=== PATIENT | male | born 1965 | race Caucasian/White ===

== ENCOUNTER 2016-07-16 21:17 | Emergency (ER) | payer SELFPAY ==
[2016-07-16 21:27] VITALS: BP 143/62
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
== END 2016-07-16 23:10 | disposition left against medical advice (07) ==
LOC: ER 21:17
DX: T25.512A Corrosion of first degree of left ankle, initial encounter (principal); X58.XXXA Exposure to other specified factors, initial encounter; Z88.6 Allergy status to analgesic agent; Z86.14 Personal history of Methicillin resistant Staphylococcus aureus infection
CPT/HCPCS: 99281

== ENCOUNTER 2016-10-31 13:15 | Emergency (ER) | payer SELFPAY ==
[2016-10-31] MEDS ORDERED: TAMSULOSIN HCL 0.4 MG CAP.SR.24H PO ONE (13:27)
--- NOTE | 2016-10-31 13:28 | ER Document Report ---
ED Medical Screen (RME) - General Chief Complaint: Inability to Void Stated Complaint: URINARY PROBLEMS TRAVEL OUTSIDE OF THE [place] IN LAST 30 DAYS: No - HPI Notes: 10/31/16 13:27 Urinary retention with dysuria the last 48 hours - Related Data Allergies/Adverse Reactions: codeine [Codeine] Allergy (Verified 10/31/16 13:17) hydrocodone [Hydrocodone] Allergy (Verified 10/31/16 13:17) Past Medical History Renal/ Medical History: Denies: Hx Peritoneal Dialysis Skin Medical History: Reports Hx MRSA Traumatic Medical History: Reports: Hx Fractures Infectious Medical History: Reports: Hx MRSA Past Surgical History: Reports: Hx Orthopedic Surgery - R clavical - Immunizations Immunizations up to date: No Hx Diphtheria, Pertussis, Tetanus Vaccination: Yes Review of Systems - Review of Systems Constitutional: Other - Urinary retention Physical Exam - Cardiovascular Rhythm: Regular Heart sounds: Normal auscultation Course - Re-evaluation Re-evalutation: 10/31/16 13:28 I have greeted and performed a rapid initial assessment of this patient. A comprehensive ED assessment and evaluation of the patient, analysis of test results and completion of the medical decision making process will be conducted by additional ED providers.
--- NOTE | 2016-10-31 14:02 | ER Document Report ---
ED General - General Chief Complaint: Inability to Void Stated Complaint: URINARY PROBLEMS Mode of Arrival: Ambulatory Information source: Patient Notes: 51-year-old male presents with complaints of difficulty urinating. Patient notes he has had burning on urination with foul dark smelling urine. Patient notes symptoms worsened since this morning, has not urinated since 6 AM TRAVEL OUTSIDE OF THE [place] IN LAST 30 DAYS: No - HPI Onset: This morning Onset/Duration: Sudden Quality of pain: Burning Severity: Mild Pain Level: 1 Associated symptoms: Other Exacerbated by: Other - Urination Relieved by: Denies Similar symptoms previously: No Recently seen / treated by doctor: No - Related Data Allergies/Adverse Reactions: codeine [Codeine] Allergy (Verified 10/31/16 13:17) hydrocodone [Hydrocodone] Allergy (Verified 10/31/16 13:17) Past Medical History - Social History Smoking Status: Never Smoker Cigarette use (# per day): No Chew tobacco use (# tins/day): No Smoking Education Provided: No Family History: Reviewed & Not Pertinent Patient has suicidal ideation: No Patient has homicidal ideation: No Renal/ Medical History: Denies: Hx Peritoneal Dialysis Skin Medical History: Reports Hx MRSA Traumatic Medical History: Reports: Hx Fractures Infectious Medical History: Reports: Hx MRSA Past Surgical History: Reports: Hx Orthopedic Surgery - R clavical - Immunizations Immunizations up to date: No Hx Diphtheria, Pertussis, Tetanus Vaccination: Yes Review of Systems - Review of Systems Notes: PHYSICAL EXAMINATION: GENERAL: Well-appearing, well-nourished and in no acute distress. HEAD: Atraumatic, normocephalic. EYES: Pupils equal round and reactive to light, extraocular movements intact, sclera anicteric, conjunctiva are normal. ENT: Nares patent, oropharynx clear without exudates. Moist mucous membranes. NECK: Normal range of motion, supple without lymphadenopathy LUNGS: Breath sounds clear to auscultation bilaterally and equal. No wheezes rales or rhonchi. HEART: Regular rate and rhythm without murmurs ABDOMEN: Soft, nontender, nondistended abdomen. No guarding, no rebound. No masses appreciated. Admits difficulty urinating Musculoskeletal: Normal range of motion, no pitting or edema. No cyanosis. NEUROLOGICAL: Cranial nerves grossly intact. Normal speech, normal gait. Normal sensory, motor exams PSYCH: Normal mood, normal affect. SKIN: Warm, Dry, normal turgor, no rashes or lesions noted. Course - Re-evaluation Re-evalutation: 10/31/16 14:02 Potter was placed immediately, urinalysis pending 10/31/16 14:46 Potter was placed, no UTIs noted. Patient will be sent for CT renal for evaluation of kidney stone versus a prostate enlargement 10/31/16 16:14 CT noted no significant abnormality, I discussed with the patient regarding keeping the Potter in place versus removing it, he wishes to keep the Potter in place and will follow-up with urology. I explained to the patient very strict return precautions and they state the understand and will return if needed After performing a Medical Screening Examination, I estimate there is LOW risk for ACUTE APPENDICITIS, BOWEL OBSTRUCTION, ACUTE CHOLECYSTITIS, PERFORATED DIVERTICULITIS, INCARCERATED HERNIA, PANCREATITIS, or PERFORATED ULCER, thus I consider the discharge disposition reasonable. Also, there is no evidence or peritonitis, sepsis, or toxicity. I have reevaluated this patient multiple times and no significant life threatening changes are noted. The patient and I have discussed the diagnosis and risks, and we agree with discharging home with close follow-up with the understanding that symptoms and presentations can change. We also discussed returning to the Emergency Department immediately if new or worsening symptoms occur. We have discussed the symptoms which are most concerning (e.g., bloody stool, fever, changing or worsening pain, intractable vomiting - standard verbal up date) that necessitate immediate return. 10/31/16 16:26 Discharge - Discharge Clinical Impression: Urinary retention Condition: Stable Disposition: HOME, SELF-CARE Instructions: Potter Catheter Care ([facility]), Urinary Retention ([facility]) Prescriptions: Tamsulosin HCl [Flomax 0.4 mg Cap.sr] 0.4 mg PO DAILY #7 cap.sr.24h Referrals: ANGELINA GRAY MD [ACTIVE STAFF] - Follow up tomorrow
[2016-10-31 14:04] LABS: APPEARANCE,URINE CLEAR; BILIRUBIN,URINE NEGATIVE (NEGATIVE); GLUCOSE, URINE NEGATIVE (NEGATIVE); KETONES,URINE NEGATIVE (NEGATIVE); LEUKOCYTE ESTERASE,URINE NEGATIVE (NEGATIVE); NITRITE,URINE NEGATIVE (NEGATIVE); PROTEIN,URINE NEGATIVE (NEGATIVE); URINE SPECIFIC GRAVITY 1.011; UROBILINOGEN,URINE NEGATIVE mg/dL (<2.0)
[2016-10-31 17:52] VITALS: BP 133/82
== END 2016-10-31 16:36 | disposition home or self-care (01) ==
LOC: ER 13:15
DX: R33.9 Retention of urine, unspecified (principal); R30.0 Dysuria; R39.89 Other symptoms and signs involving the genitourinary system; Z88.5 Allergy status to narcotic agent; Z86.14 Personal history of Methicillin resistant Staphylococcus aureus infection
CPT/HCPCS: 51702; 76380; 81001; 99284

== ENCOUNTER 2016-11-02 11:06 | Emergency (ER) | payer SELFPAY ==
[2016-11-02 11:13] VITALS: BP 114/70
--- NOTE | 2016-11-02 11:42 | ER Document Report ---
HPI - HPI Patient complains to provider of: carson removal Pain Level: 5 Context: 51 yo male here for Carson removal. Pt seen in ED 2 days ago for urinary retention and had carson placed. Instructed to f/u with Urology, but unable to schedule appointment for 3 weeks. Pt c/o discomfort at meatus with urinary leakage. Denies fever, abdominal or back pain, testicular pain Associated Symptoms: None Exacerbated by: Denies Relieved by: Denies Similar symptoms previously: No Recently seen / treated by doctor: Yes - ED 10/31 - ROS Systems Reviewed and Negative: Yes All other systems reviewed and negative - DERM Skin Color: Normal Past Medical History - General Information source: Patient - Social History Smoking Status: Current Every Day Smoker Cigarette use (# per day): Yes - 1ppd Smoking Education Provided: Yes - cessation encouraged Frequency of alcohol use: None Drug Abuse: None Lives with: Family Family History: Reviewed & Not Pertinent Patient has suicidal ideation: No Patient has homicidal ideation: No Renal/ Medical History: Denies: Hx Peritoneal Dialysis Skin Medical History: Reports Hx MRSA Traumatic Medical History: Reports: Hx Fractures Infectious Medical History: Reports: Hx MRSA Past Surgical History: Reports: Hx Orthopedic Surgery - R clavical - Immunizations Immunizations up to date: No Hx Diphtheria, Pertussis, Tetanus Vaccination: Yes Vertical Provider Document - CONSTITUTIONAL Agree With Documented VS: Yes Exam Limitations: No Limitations - INFECTION CONTROL TRAVEL OUTSIDE OF THE [place] IN LAST 30 DAYS: No - HEENT HEENT: Atraumatic, PERRLA - NECK Neck: Normal Inspection, Supple - RESPIRATORY Respiratory: Breath Sounds Normal, No Respiratory Distress O2 Sat by Pulse Oximetry: 99 - CARDIOVASCULAR Cardiovascular: Regular Rate, Regular Rhythm - GI/ABDOMEN Gastrointestinal: Abdomen Soft, Abdomen Non-Tender - REPRODUCTIVE Notes: carson intact. mild eythema at meatus - BACK Back: Normal Inspection. negative: CVA Tenderness-Right, CVA Tenderness-Left - NEURO Level of Consciousness: Awake, Alert, Appropriate - DERM Integumentary: Warm, Dry Course - Re-evaluation Re-evalutation: 11/02/16 11:40 discussed catheter removal with WILBER Santos to remove catheter and have patient follow up with urology or return to ER if unable to urinate. - Vital Signs Vital signs: Temp Pulse Resp BP Pulse Ox 98.0 F 77 18 114/70 99 11/02/16 11:09 05/10/17 11:09 11/02/16 11:09 11/02/16 11:09 11/02/16 11:09 Discharge - Discharge Clinical Impression: Urinary catheter insertion/adjustment/removal Condition: Stable Disposition: HOME, SELF-CARE Additional Instructions: Your catheter was removed today Please follow up with urology as scheduled Return to ER for any worsening
== END 2016-11-02 12:00 | disposition home or self-care (01) ==
LOC: ER 11:06
DX: Z46.6 Encounter for fitting and adjustment of urinary device (principal); F17.210 Nicotine dependence, cigarettes, uncomplicated; Z71.6 Tobacco abuse counseling; Z86.14 Personal history of Methicillin resistant Staphylococcus aureus infection
CPT/HCPCS: 99283

== ENCOUNTER → 2017-03-08 | Outpatient (CLI) | payer OTHER | LOC: CCC 16:34 | DX: N40.0 Benign prostatic hyperplasia without lower urinary tract symptoms (principal) ==

== ENCOUNTER → 2017-03-11 | Outpatient (CLI) | payer OTHER ==
[2017-03-11 12:49] LABS: ALANINE AMINOTRANSFERASE 31 U/L (21-72); ALBUMIN 3.9 g/dL (3.5-5.0); ALKALINE PHOSPHATASE 55 U/L (38-126); ANION GAP 11 (5-19); ASPARTATE AMINO TRANSFERASE 17 U/L (17-59); BILIRUBIN,DIRECT 0.4 mg/dL (0.0-0.4); BILIRUBIN,TOTAL 0.9 mg/dL (0.2-1.3); BLOOD UREA NITROGEN 14 mg/dL (7-20); CALCIUM 9.6 mg/dL (8.4-10.2); CARBON DIOXIDE 23 mmol/L (22-30); CHLORIDE 105 mmol/L (98-107); CHOLESTEROL 144.23 mg/dL (0-200); CREATININE RESULT 0.86 mg/dL (0.52-1.25); Direct HDL 36 mg/dL (>40); GLUCOSE 89 mg/dL (75-110); POTASSIUM 4.3 mmol/L (3.6-5.0); SODIUM 138.6 mmol/L (137-145); TOTAL PROTEIN 6.8 g/dL (6.3-8.2); TRIGLYCERIDES 65 mg/dL (<150)
[2017-03-11 13:00] LABS: DIRECT LDL 100 mg/dL (<100)
[2017-03-13 15:38] LABS: HEPATITIS C VIRUS AB <0.1 s/co ratio (0.0-0.9)
== END ==
LOC: OD 11:53
DX: N40.0 Benign prostatic hyperplasia without lower urinary tract symptoms (principal)
CPT/HCPCS: 36415; 80053; 80061; 83036; 84153; 86803; 86804

== ENCOUNTER 2017-03-20 11:53 | Emergency (ER) | payer SELFPAY ==
[2017-03-20 11:58] VITALS: BP 132/87
[2017-03-20] MEDS ORDERED: KETOROLAC TROMETHAMINE 60 MG/2 ML SDV IM ONE (12:47)
[2017-03-20] MEDS ORDERED: OXYCODONE-ACETAMINOPHEN 5-325 MG TABLET PO ONE (12:47)
[2017-03-20] MEDS ORDERED: LIDOCAINE 5% (700 MG) TRANSDERMAL ADH..PATCH TP ONE (12:48)
--- NOTE | 2017-03-20 12:50 | ER Document Report ---
HPI - HPI Patient complains to provider of: Low back pain Onset: Just prior to arrival Onset/Duration: Sudden Quality of pain: Sharp Pain Level: 5 Context: Patient states he was bending over doing on a screw and developed sharp low back pain. Patient denies any radiculopathy or paresthesia. Patient denies any fever. Patient states he has had back pain in this location in the past. - DERM Skin Color: Normal Past Medical History - General Information source: Patient - Social History Smoking Status: Current Every Day Smoker Frequency of alcohol use: None Drug Abuse: None Occupation: [employer] jobs Family History: Reviewed & Not Pertinent Renal/ Medical History: Denies: Hx Peritoneal Dialysis Musculoskeltal Medical History: Reports Other - Low back pain Skin Medical History: Reports Hx MRSA Traumatic Medical History: Reports: Hx Fractures Infectious Medical History: Reports: Hx MRSA Past Surgical History: Reports: Hx Orthopedic Surgery - R clavical - Immunizations Immunizations up to date: No Hx Diphtheria, Pertussis, Tetanus Vaccination: Yes Vertical Provider Document - CONSTITUTIONAL Agree With Documented VS: Yes Exam Limitations: No Limitations General Appearance: WD/WN, No Apparent Distress Notes: PHYSICAL EXAMINATION: GENERAL: Well-appearing, well-nourished and in no acute distress. HEAD: Atraumatic, normocephalic. EYES: sclera clear, anicteric, conjunctiva are normal. ENT: nares patent, Moist mucous membranes. NECK: Normal range of motion, supple LUNGS: respirations unlabored HEART: Regular rate and rhythm without murmurs EXTREMITIES: Normal range of motion, no pitting or edema. No cyanosis. Gait normal, pt ambulates without difficulty BACK: Lower lumbar paraspinal tenderness, lumbar midline tenderness, no deformities or step-offs. No CVA tenderness. NEUROLOGICAL: Cranial nerves grossly intact. Normal speech, normal gait. No saddle anesthesia. No foot drop. 2+ patellar reflexes bilaterally PSYCH: Normal mood, normal affect. SKIN: Warm, Dry, normal turgor, no rashes or lesions noted. - INFECTION CONTROL TRAVEL OUTSIDE OF THE [place] IN LAST 30 DAYS: No - RESPIRATORY O2 Sat by Pulse Oximetry: 100 Course - Vital Signs Vital signs: Temp Pulse Resp BP Pulse Ox 97.6 F 65 40 H 132/87 H 100 03/20/17 11:56 03/20/17 11:56 03/20/17 11:56 03/20/17 11:56 03/20/17 11:56 Discharge - Discharge Clinical Impression: Low back pain Qualifiers: Chronicity: acute Back pain laterality: bilateral Sciatica presence: without sciatica Qualified Code(s): M54.5 - Low back pain Condition: Stable Disposition: HOME, SELF-CARE Additional Instructions: Return immediately for any new or worsening symptoms Followup with your primary care provider, call tomorrow to make a followup appointment LOW BACK PAIN: Three out of every four people will have an episode of disabling back pain during their lifetime. Most commonly the pain is due to straining of the muscles and ligaments in the low back. Usual treatment includes: (1) Rest on a firm surface. Avoid lying on your stomach. (2) Ice pack the painful area. After a few days, gentle heat may be used intermittently to relax the area, or ice packs can be continued. (3) Medication may be needed -- muscle relaxers and antiinflammatory medicines are commonly used. (4) As the back improves, exercises are prescribed to strengthen the back and abdominal muscles. Your doctor will advise you on the proper care for your back at each stage in your recovery. You may be better in a few days -- or healing may take several weeks. If new symptoms of a "herniated disc" (radiation of pain, numbness, or tingling down the back of the leg or weakness in the leg) occur, you should be re-examined. Further testing may be necessary. ORAL NARCOTIC MEDICATION: You have been given a prescription for pain control. This medication is a narcotic. It's best taken with food, as nausea can result if taken on an empty stomach. Don't operate machinery or drive within six hours of taking this medication. Do not combine this medicine with alcohol, or with any medication which can cause sedation (such as cold tablets or sleeping pills) unless you get permission from the physician. Narcotics tend to cause constipation. If possible, drink plenty of fluids and eat a diet high in fiber and fruits. Please be aware that prescription narcotics also have the potential for abuse. People become addicted to these medications because of the general sense of wellbeing that they induce. This feeling along with a significant reduction in tension, anxiety, and aggression provides a stimulating seductive quality to these drugs. Once your pain is under control, we encourage you to discard your unused narcotics. MUSCLE RELAXERS: Muscle relaxing medications are usually prescribed for acute muscle spasm or injury to the neck and back. They are often combined with antiinflammatory pain medication for increased relief. You may stop the muscle relaxer when the pain and stiffness have improved. Start the medication again if spasms recur. Muscle relaxers may cause drowsiness, especially with the first dose. Do not operate machinery or drive while under the effects of the medication. Most muscle relaxers last up to 24 hours. Do not combine the medication with alcohol. ICE PACKS: Apply ice packs frequently against the painful area. Many different schedules are recommended, such as "20 minutes on, 20 minutes off" or "one hour ice, two hours rest." If you need to work, you may need to go longer between ice treatments. You should plan to have the area ice packed AT LEAST one fourth of the time. The ice should be applied over the wrap, tape, or splint, or over a layer of cloth -- not directly against the skin. Some ice bags have a built-in cloth and can be put directly on the skin. WARM PACKS: After approximately two days, apply gentle heat (such as a heating pad or hot water bottle) for about 20 to 30 minutes about every two hours -- at least four times daily. Warmth and elevation will help you make a more rapid recovery , and will ease the pain considerably. Do not use HOT heat, and never apply heat for longer than 30 minutes. The continuous heat can invisibly damage skin and muscles -- even when no burn is seen on the surface. Damaged muscles can make you MORE sore. FOLLOW-UP CARE: If you have been referred to a physician for follow-up care, call the physician s office for an appointment as you were instructed or within the next two days. If you experience worsening or a significant change in your symptoms, notify the physician immediately or return to the Emergency Department at any time for re-evaluation. Prescriptions: Cyclobenzaprine HCl [Flexeril 10 Mg Tablet] 10 mg PO TID #15 tablet Oxycodone HCl/Acetaminophen [Percocet 5-325 mg Tablet] 1 - 2 tab PO ASDIR PRN # 15 tablet PRN Reason: Referrals: [facility] [Provider Group] - Follow up as needed [facility] [Provider Group] - Follow up as needed
== END 2017-03-20 13:10 | disposition home or self-care (01) ==
LOC: ER 11:53
DX: M54.5 Low back pain (principal); F17.200 Nicotine dependence, unspecified, uncomplicated
CPT/HCPCS: 99283; 96372; J1885

== ENCOUNTER 2017-07-28 18:40 | Emergency (ER) | payer OTHER ==
[2017-07-28] MEDS ORDERED: CYCLOBENZAPRINE HCL 10 MG TABLET PO ONE (20:05)
[2017-07-28] MEDS ORDERED: ACETAMINOPHEN 325 MG TABLET PO ONE (20:05)
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
[2017-07-28 21:09] VITALS: BP 124/78
== END 2017-07-28 21:09 | disposition home or self-care (01) ==
LOC: ER 18:40
DX: R51 Headache (principal); M54.5 Low back pain; M79.641 Pain in right hand; V89.2XXA Person injured in unspecified motor-vehicle accident, traffic, initial encounter; F17.200 Nicotine dependence, unspecified, uncomplicated; Z86.14 Personal history of Methicillin resistant Staphylococcus aureus infection
CPT/HCPCS: 72110; 99283

== ENCOUNTER 2017-12-10 17:27 | Emergency (ER) | payer SELFPAY ==
--- NOTE | 2017-12-10 18:10 | ER Document Report ---
ED Medical Screen (RME) - General Chief Complaint: Neck Pain < 24hrs old Stated Complaint: NECK PAIN Time Seen by Provider: 12/10/17 18:00 Mode of Arrival: Ambulatory Information source: Patient Notes: 52-year-old male with no reported past medical history presents with multiple complaints including neck pain, jaw pain, nausea, vomiting, diaphoresis, abdominal pain,ear pain. Patient states that his neck pain began last night. He denies any injury. He states that his nausea, vomiting, and abdominal pain occurred shortly afterwards. Patient states that he overall feels weak. Patient has a significant smoking history. He denies any chest pain, shortness of breath. I have greeted and performed a rapid initial assessment of this patient. A comprehensive ED assessment and evaluation of the patient including analysis of labs and imaging ( if obtained) and completion of medical decision making will be conducted by an additional ED provider. PHYSICAL EXAMINATION: GENERAL: Diaphoretic HEAD: Atraumatic, normocephalic. EYES: Pupils equal round extraocular movements intact, conjunctiva are normal. ENT: Nares patent NECK: Normal range of motion LUNGS: No respiratory distress Musculoskeletal: Normal range of motion NEUROLOGICAL: Normal speech, normal gait. PSYCH: Normal mood, normal affect. SKIN: Warm, Dry, normal turgor, no rashes or lesions noted. TRAVEL OUTSIDE OF THE [place] IN LAST 30 DAYS: No - HPI Onset: Yesterday - Related Data Allergies/Adverse Reactions: codeine [Codeine] Allergy (Verified 03/20/17 11:56) hydrocodone [Hydrocodone] Allergy (Verified 03/20/17 11:56) Past Medical History - Social History Chew tobacco use (# tins/day): No Frequency of alcohol use: None Drug Abuse: None Renal/ Medical History: Denies: Hx Peritoneal Dialysis Skin Medical History: Reports Hx MRSA Traumatic Medical History: Reports: Hx Fractures Infectious Medical History: Reports: Hx MRSA Past Surgical History: Reports: Hx Orthopedic Surgery - R clavical - Immunizations Immunizations up to date: No Hx Diphtheria, Pertussis, Tetanus Vaccination: Yes Physical Exam - Vital signs Vitals: Temp Pulse Resp BP Pulse Ox 99.4 F 99 20 141/74 H 98 12/10/17 17:32 12/10/17 17:32 12/10/17 17:32 12/10/17 17:32 12/10/17 17:32 Course - Vital Signs Vital signs: Temp Pulse Resp BP Pulse Ox 99.4 F 99 20 141/74 H 98 12/10/17 17:32 12/10/17 17:32 12/10/17 17:32 12/10/17 17:32 12/10/17 17:32
[2017-12-10] MEDS ORDERED: ONDANSETRON 4 MG TAB.RAPDIS PO ONE (18:11)
--- NOTE | 2017-12-10 19:04 | RADIOLOGY REPORT (SQ) ---
EXAM DESCRIPTION: CHEST 2 VIEWS COMPLETED DATE/TIME: 12/10/2017 6:42 pm REASON FOR STUDY: Weakness, diaphoresis COMPARISON: 01/03/2016. EXAM PARAMETERS: NUMBER OF VIEWS: two views TECHNIQUE: Digital Frontal and Lateral radiographic views of the chest acquired. RADIATION DOSE: NA LIMITATIONS: none FINDINGS: LUNGS AND PLEURA: No opacities, masses or pneumothorax. No pleural effusion. MEDIASTINUM AND HILAR STRUCTURES: No masses or contour abnormalities. HEART AND VASCULAR STRUCTURES: Heart normal size. No evidence for failure. BONES: No acute findings. HARDWARE: Hardware in the right clavicle. OTHER: No other significant finding. IMPRESSION: NO ACUTE RADIOGRAPHIC FINDING IN THE CHEST. TECHNICAL DOCUMENTATION: JOB ID: [id number] [email or web address]- All Rights Reserved Reading location - IP/workstation name: [email or web address]
--- NOTE | 2017-12-10 19:05 | RADIOLOGY REPORT (SQ) ---
EXAM DESCRIPTION: CERV SP 4 OR 5 VIEWS COMPLETED DATE/TIME: 12/10/2017 6:42 pm REASON FOR STUDY: Weakness, diaphoresis COMPARISON: None. NUMBER OF VIEWS: Five views. TECHNIQUE: AP, lateral, obliques and odontoid radiographic images acquired of the cervical spine. LIMITATIONS: None. FINDINGS: MINERALIZATION: Normal. ALIGNMENT: Anatomic. VERTEBRAE: Vertebral bodies of normal height. DISCS: Disc space narrowing with osteophytes at C5-C6 and C6-C7. FORAMINA: Foraminal narrowing due to osteophytes at C5-C6 and C6-C7. LATERAL AND POSTERIOR ELEMENTS: Facets, lateral masses and spinous processes without significant find ings. HARDWARE: None in the spine. SOFT TISSUES: No masses or calcifications. Lung apices clear. OTHER: No other significant finding. IMPRESSION: DEGENERATIVE DISC DISEASE IN THE LOWER CERVICAL SPINE. TECHNICAL DOCUMENTATION: JOB ID: [id number] [employer]- All Rights Reserved Reading location - IP/workstation name: [email or web address]
[2017-12-10 19:33] LABS: ABSOLUTE BASOPHILS # (AUTO) 0.1 10^3/uL (0.0-0.2); ABSOLUTE EOSINOPHILS # (AUTO) 0.2 10^3/uL (0.0-0.6); ABSOLUTE LYMPHOCYTES (AUTO) 1.7 10^3/uL (0.5-4.7); ABSOLUTE MONOCYTES (AUTO) 1.1 10^3/uL (0.1-1.4); BASOPHILS % (AUTO) 0.6 % (0-2); EOSINOPHILS % (AUTO) 1.6 % (0-6); HEMATOCRIT 45.3 % (37.9-51.0); HEMOGLOBIN 15.3 g/dL (13.5-17.0); LYMPHOCYTES % (AUTO) 14.5 % (13-45); MEAN CORPUSCULAR HEMOGLOBIN 29.3 pg (27.0-33.4); MEAN CORPUSCULAR HGB CONC 33.8 g/dL (32.0-36.0); MEAN CORPUSCULAR VOLUME 87 fl (80-97); MONOCYTES % (AUTO) 8.7 % (3-13); PLATELET COUNT 186 10^3/uL (150-450); RED BLOOD COUNT 5.23 10^6/uL (4.35-5.55); RED CELL DISTRIBUTION WIDTH 14.1 % (11.5-14.0); SEGMENTED NEUTROPHILS % (AUTO) 74.6 % (42-78); TOTAL CELLS COUNTED % (AUTO) 100 %; WHITE BLOOD COUNT 12.1 10^3/uL (4.0-10.5)
[2017-12-10 19:44] LABS: APPEARANCE,URINE CLEAR; BILIRUBIN,URINE NEGATIVE (NEGATIVE); COLOR,URINE YELLOW; GLUCOSE, URINE 50 mg/dL (NEGATIVE); KETONES,URINE NEGATIVE (NEGATIVE); LEUKOCYTE ESTERASE,URINE NEGATIVE (NEGATIVE); NITRITE,URINE NEGATIVE (NEGATIVE); PROTEIN,URINE NEGATIVE (NEGATIVE); URINE SPECIFIC GRAVITY 1.023
[2017-12-10] MEDS ORDERED: DEXAMETHASONE SOD PHOS INJ 10 MG/1 ML VIAL IV ONE (19:49)
--- NOTE | 2017-12-10 19:58 | ER Document Report ---
ED General - General Chief Complaint: Neck Pain < 24hrs old Stated Complaint: NECK PAIN Time Seen by Provider: 12/10/17 18:00 Mode of Arrival: Ambulatory Information source: Patient Notes: This is a 52-year-old man with no significant medical history who presents to the emergency room with cough, congestion, sore throat, left lateral neck pain and intermittent sharp shooting headache. Patient denies photophobia, neck stiffness or persistent headache. Patient is not sure whether he has been having fevers. Symptoms started last night. TRAVEL OUTSIDE OF THE [place] IN LAST 30 DAYS: No - HPI Onset: Other Onset/Duration: Gradual Quality of pain: Dull - Last night Severity: Moderate Pain Level: 2 Associated symptoms: Chills, Sore throat, Other - Johnson congestion. denies: Fever Exacerbated by: Denies Relieved by: Denies Similar symptoms previously: No Recently seen / treated by doctor: No - Related Data Allergies/Adverse Reactions: codeine [Codeine] Allergy (Verified 03/20/17 11:56) hydrocodone [Hydrocodone] Allergy (Verified 03/20/17 11:56) Past Medical History - General Information source: Patient - Social History Smoking Status: Current Every Day Smoker Cigarette use (# per day): Yes - 1 pack per day Chew tobacco use (# tins/day): No Frequency of alcohol use: None Drug Abuse: None Lives with: Family Family History: Reviewed & Not Pertinent Patient has suicidal ideation: No Patient has homicidal ideation: No - Medical History Medical History: Negative Renal/ Medical History: Denies: Hx Peritoneal Dialysis Skin Medical History: Reports Hx MRSA Traumatic Medical History: Reports: Hx Fractures Infectious Medical History: Reports: Hx MRSA Past Surgical History: Reports: Hx Orthopedic Surgery - R clavical - Immunizations Immunizations up to date: No Hx Diphtheria, Pertussis, Tetanus Vaccination: Yes Review of Systems - Review of Systems Constitutional: denies: Chills, Fever EENT: See HPI, Nose congestion, Sinus pressure, Throat pain Cardiovascular: No symptoms reported Respiratory: Cough Gastrointestinal: No symptoms reported Genitourinary: No symptoms reported Male Genitourinary: No symptoms reported Musculoskeletal: No symptoms reported Skin: No symptoms reported Hematologic/Lymphatic: No symptoms reported Neurological/Psychological: No symptoms reported Physical Exam - Vital signs Vitals: Temp Pulse Resp BP Pulse Ox 99.4 F 99 20 141/74 H 98 12/10/17 17:32 12/10/17 17:32 12/10/17 17:32 12/10/17 17:32 12/10/17 17:32 Notes: Physical exam: GENERAL: 52-year-old man, alert and oriented 3, no acute distress HEAD: Atraumatic, normocephalic. EYES: Pupils equal round and reactive to light, extraocular movements intact, sclera anicteric, conjunctiva are normal. ENT: TMs normal, nares patent, oropharynx erythematous with some exudate, no unilateral swelling or obvious fluctuance. Moist mucous membranes. NECK: Normal range of motion, supple. He does have tenderness along the posterior cervical chain region with no significant palpable masses. LUNGS: Breath sounds clear to auscultation bilaterally and equal. No wheezes rales or rhonchi. HEART: Regular rate and rhythm without murmurs, rubs or gallops. ABDOMEN: Soft, normoactive bowel sounds. No tenderness to palpation. No guarding, no rebound. No masses appreciated. EXTREMITIES: Normal range of motion, no pitting or edema. No clubbing or cyanosis. NEUROLOGICAL: Cranial nerves II through XII grossly intact. Normal speech, moving all extremities. Neck is supple, no meningismus. PSYCH: Normal mood, normal affect. SKIN: Warm, Dry, normal turgor, no rashes or lesions noted. Course - Vital Signs Vital signs: Temp Pulse Resp BP Pulse Ox 98.4 F 60 18 131/76 H 99 12/10/17 22:25 12/10/17 22:25 12/10/17 22:25 12/10/17 22:25 12/10/17 22:25 - Laboratory Result Diagrams: 12/10/17 18:55 12/10/17 18:55 Laboratory results interpreted by me: 12/10/17 12/10/17 18:55 18:55 WBC 12.1 H RDW 14.1 H Absolute Neutrophils 9.0 H Urine Glucose (UA) 50 H Urine Urobilinogen 4.0 H - Diagnostic Test Radiology reviewed: Image reviewed, Reports reviewed - Chest x-ray showed no infiltrates. Soft tissue neck showed no obvious lesions. - EKG Interpretation by Me Rate: Normal Rhythm: NSR - EKG shows normal sinus rhythm with a ventricular rate of 78, no acute ST-T wave changes Discharge - Discharge Clinical Impression: Pharyngitis Condition: Stable Disposition: HOME, SELF-CARE Instructions: Sore Throat ([facility]) Additional Instructions: You were given a shot of Decadron which lasts for several days. This will often relieve some of the pain and reduce swelling to the area. You received a shot of IM penicillin which will last several days as well. Even though the rapid strep test was negative today, it could sometimes be incorrect, so we are treating you just in case. I want you to go ahead and gargle with Listerine once or twice a day to the back of the throat. I would like you to use simply saline which is a nasal spray sold at [address] [employer]. You can put it in the shower and use several sprays both nostrils to keep the nasal passageways open so that your sinuses can drain. Follow-up with a primary care doctor: I left the [facility] which is a free clinic. Forms: Elevated Blood Pressure Referrals: [facility] [Provider Group] - Follow up as needed (This is the number the free medical clinic: I would like you to follow-up and get repeat blood pressure check.)
[2017-12-10 20:26] LABS: CREATINE KINASE MB 0.76 ng/mL (<4.55)
[2017-12-10 20:27] LABS: ALANINE AMINOTRANSFERASE 24 U/L (21-72); ALBUMIN 4.3 g/dL (3.5-5.0); ALKALINE PHOSPHATASE 60 U/L (38-126); ANION GAP 11 (5-19); ASPARTATE AMINO TRANSFERASE 17 U/L (17-59); BILIRUBIN,DIRECT 0.3 mg/dL (0.0-0.4); BILIRUBIN,TOTAL 0.7 mg/dL (0.2-1.3); BLOOD UREA NITROGEN 16 mg/dL (7-20); CALCIUM 9.5 mg/dL (8.4-10.2); CARBON DIOXIDE 27 mmol/L (22-30); CHLORIDE 103 mmol/L (98-107); GLUCOSE 109 mg/dL (75-110); POTASSIUM 3.7 mmol/L (3.6-5.0); SODIUM 140.8 mmol/L (137-145); TOTAL PROTEIN 7.8 g/dL (6.3-8.2); TROPONIN I < 0.012 ng/mL
[2017-12-10 20:31] LABS: CREATINE KINASE 99 U/L (55-170)
--- NOTE | 2017-12-10 21:35 | EKG REPORT ---
SEVERITY:- NORMAL ECG - SINUS RHYTHM : Confirmed by: Marco Elliott MD 10-Dec-2017 21:35:17
[2017-12-10] MEDS ORDERED: PENICILLIN G BENZATHINE 1.2 MILLION UNIT/2 ML DISP.SYRIN IM ONE (22:04)
[2017-12-10 22:34] VITALS: BP 131/76
== END 2017-12-10 22:30 | disposition home or self-care (01) ==
LOC: ER 17:27
DX: J02.9 Acute pharyngitis, unspecified (principal); M54.2 Cervicalgia; F17.210 Nicotine dependence, cigarettes, uncomplicated; Z86.14 Personal history of Methicillin resistant Staphylococcus aureus infection; Z88.6 Allergy status to analgesic agent
CPT/HCPCS: 93005; 99284; 96372; 96374; 36415; 87070; 82553; 87880; 82550; 85025; 86308; 80053; 81001; 84484; 72050; 71046; 93010; S0119; J0561; J1100

== ENCOUNTER 2019-01-11 19:43 | Emergency (ER) | payer SELFPAY ==
[2019-01-12] MEDS ORDERED: ASPIRIN 81 MG TABLET, CHEWABLE PO ONE (00:54)
--- NOTE | 2019-01-12 00:56 | ER Document Report ---
ED Medical Screen (RME) - General Chief Complaint: Chest Pain Stated Complaint: KNOT UNDER LEFT ARM Time Seen by Provider: 01/12/19 00:53 Information source: Patient Notes: Patient presents complaining of a knot under the left axilla for the past 4 days. Patient also reports left-sided chest pain deep inside the chest. Patient denies any cough shortness of breath or fever. Patient denies any significant medical history. I have greeted and performed a rapid initial assessment of this patient. A comprehensive ED assessment and evaluation of the patient, analysis of test results and completion of the medical decision making process will be conducted by additional ED providers. TRAVEL OUTSIDE OF THE [place] IN LAST 30 DAYS: No - Related Data Allergies/Adverse Reactions: codeine [Codeine] Allergy (Verified 01/11/19 19:48) hydrocodone [Hydrocodone] Allergy (Verified 01/11/19 19:48) Past Medical History Renal/ Medical History: Denies: Hx Peritoneal Dialysis Skin Medical History: Reports Hx MRSA Traumatic Medical History: Reports: Hx Fractures Infectious Medical History: Reports: Hx MRSA Past Surgical History: Reports: Hx Orthopedic Surgery - R clavical - Immunizations Immunizations up to date: No Hx Diphtheria, Pertussis, Tetanus Vaccination: Yes Physical Exam - Vital signs Vitals: Temp Pulse Resp BP Pulse Ox 98.5 F 73 16 148/76 H 97 01/11/19 19:58 01/11/19 19:58 01/11/19 19:58 01/11/19 19:58 01/11/19 19:58 - General Notes: palpable nodule to the left axilla, skin rash to bilateral axilla - Cardiovascular Rhythm: Regular Heart sounds: S1 appreciated, S2 appreciated Course - Vital Signs Vital signs: Temp Pulse Resp BP Pulse Ox 97.4 F 57 L 16 151/82 H 98 01/12/19 00:35 01/12/19 00:35 01/12/19 00:35 01/12/19 00:35 01/12/19 00:35
[2019-01-12 01:10] LABS: ABSOLUTE BASOPHILS # (AUTO) 0.1 10^3/uL (0.0-0.2); ABSOLUTE EOSINOPHILS # (AUTO) 0.4 10^3/uL (0.0-0.6); ABSOLUTE LYMPHOCYTES (AUTO) 2.4 10^3/uL (0.5-4.7); ABSOLUTE MONOCYTES (AUTO) 0.5 10^3/uL (0.1-1.4); ABSOLUTE NEUT (AUTO) 4.1 10^3/uL (1.7-8.2); BASOPHILS % (AUTO) 1.1 % (0-2); EOSINOPHILS % (AUTO) 4.9 % (0-6); HEMATOCRIT 43.6 % (37.9-51.0); HEMOGLOBIN 14.8 g/dL (13.5-17.0); LYMPHOCYTES % (AUTO) 32.3 % (13-45); MEAN CORPUSCULAR HEMOGLOBIN 29.8 pg (27.0-33.4); MEAN CORPUSCULAR VOLUME 88 fl (80-97); MONOCYTES % (AUTO) 6.6 % (3-13); PLATELET COUNT 148 10^3/uL (150-450); RED BLOOD COUNT 4.97 10^6/uL (4.35-5.55); RED CELL DISTRIBUTION WIDTH 14.2 % (11.5-14.0); SEGMENTED NEUTROPHILS % (AUTO) 55.1 % (42-78); TOTAL CELLS COUNTED % (AUTO) 100 %; WHITE BLOOD COUNT 7.4 10^3/uL (4.0-10.5)
[2019-01-12 01:23] LABS: ALANINE AMINOTRANSFERASE 26 U/L (21-72); ALBUMIN 4.1 g/dL (3.5-5.0); ALKALINE PHOSPHATASE 67 U/L (38-126); ANION GAP 7 (5-19); ASPARTATE AMINO TRANSFERASE 22 U/L (17-59); BILIRUBIN,DIRECT 0.2 mg/dL (0.0-0.4); BILIRUBIN,TOTAL 0.3 mg/dL (0.2-1.3); BLOOD UREA NITROGEN 17 mg/dL (7-20); CALCIUM 9.1 mg/dL (8.4-10.2); CARBON DIOXIDE 28 mmol/L (22-30); CHLORIDE 105 mmol/L (98-107); GLUCOSE 100 mg/dL (75-110); SODIUM 139.6 mmol/L (137-145); TOTAL PROTEIN 6.9 g/dL (6.3-8.2)
--- NOTE | 2019-01-12 01:32 | RADIOLOGY REPORT (SQ) ---
XR CHEST 2 VIEWS EXAM DATE: 01/12/2019 12:54 AM CDT HISTORY: Chest pain. COMPARISON: 12/10/2017 FINDINGS: The heart size is within normal limits. No consolidation, pleural effusion, or pneumothorax is seen. Prior fixation of the right clavicle. IMPRESSION: No evidence of acute cardiopulmonary disease.
--- NOTE | 2019-01-12 02:43 | ER Document Report ---
ED General - General Chief Complaint: Chest Pain Stated Complaint: KNOT UNDER LEFT ARM Time Seen by Provider: 01/12/19 00:53 TRAVEL OUTSIDE OF THE [place] IN LAST 30 DAYS: No - HPI Notes: Patient is a 53-year-old gentleman who presents to the emergency department for evaluation of swelling in his left axilla as well as chest pain. He is noted the swelling in his left axillary region for about 3 years. He states that over the last several days it seemed to start hurting. The pain starts in his axilla and radiates across his entire chest. He describes it as a soreness. He denies any associated nausea, diaphoresis, near syncope. It does not radiate to his arm or back. He denies any associated skin changes. No night sweats or unintentional weight loss. - Related Data Allergies/Adverse Reactions: codeine [Codeine] Allergy (Verified 01/11/19 19:48) hydrocodone [Hydrocodone] Allergy (Verified 01/11/19 19:48) Past Medical History - General Information source: Patient - Social History Smoking Status: Current Every Day Smoker Chew tobacco use (# tins/day): No Frequency of alcohol use: Occasional Drug Abuse: None Family History: Reviewed & Not Pertinent, Malignancy - Multiple cancers throughout the family Patient has suicidal ideation: No Patient has homicidal ideation: No Renal/ Medical History: Denies: Hx Peritoneal Dialysis Skin Medical History: Reports Hx MRSA Traumatic Medical History: Reports: Hx Fractures Infectious Medical History: Reports: Hx MRSA Past Surgical History: Reports: Hx Orthopedic Surgery - R clavical - Immunizations Immunizations up to date: No Hx Diphtheria, Pertussis, Tetanus Vaccination: Yes Review of Systems - Review of Systems Constitutional: No symptoms reported EENT: No symptoms reported Cardiovascular: See HPI Respiratory: No symptoms reported Gastrointestinal: No symptoms reported Genitourinary: No symptoms reported Male Genitourinary: No symptoms reported Musculoskeletal: No symptoms reported Skin: No symptoms reported Neurological/Psychological: No symptoms reported Physical Exam - Vital signs Vitals: Temp Pulse Resp BP Pulse Ox 98.5 F 73 16 148/76 H 97 01/11/19 19:58 01/11/19 19:58 01/11/19 19:58 01/11/19 19:58 01/11/19 19:58 - Notes Notes: Vital signs reviewed, please refer to chart. Head is normocephalic, atraumatic. Pupils equal round, reactive to light. Neck is supple without meningismus. Heart is regular rate and rhythm. Lungs are clear to auscultation bilaterally. Abdomen is soft, nontender, normoactive bowel sounds throughout. Extremities without cyanosis, clubbing. Posterior calves are nontender. Peripheral pulses are equal. Skin is warm and dry. Patient is awake, alert, neurological exam is nonfocal. I do not appreciate any significant masses, lymphadenopathy, skin changes, or edema in the left axilla. Right axilla is examined as well, no significant abnormalities. I do not appreciate any inguinal adenopathy. Course - Re-evaluation Re-evalutation: 01/12/19 02:41 Patient presents emergency department for evaluation. Laboratory investigations, imaging, EKG were ordered. Labs are largely unremarkable. His cardiac enzymes are negative, given his duration of pain this essentially rules out acute coronary syndrome. I strongly encouraged the patient to see a primary care physician. I explained to him that ongoing symptoms like this would be best evaluated by primary care doctor, who could she follow them over time, in order other imaging as necessary. He voiced understanding to this. Otherwise he is encouraged to quit smoking. He is to return to the emergency department with worsening or new concerning symptoms of any sort. - Vital Signs Vital signs: Temp Pulse Resp BP Pulse Ox 98.1 F 65 15 133/83 H 99 01/12/19 01:36 01/12/19 01:36 01/12/19 01:36 01/12/19 01:36 01/12/19 01:36 - Laboratory Result Diagrams: 01/12/19 00:59 01/12/19 00:59 Laboratory results interpreted by me: 01/12/19 00:59 RDW 14.2 H Plt Count 148 L - EKG Interpretation by Me Additional EKG results interpreted by me: 01/12/19 02:42 Sinus mechanism with a rate of 71 bpm. Normal axis. Incomplete right bundle branch block. No acute ST changes concerning for ischemia or infarction. No significant change in compared to prior study of December 10, 2017. Discharge - Discharge Clinical Impression: Chest pain Qualifiers: Chest pain type: unspecified Qualified Code(s): R07.9 - Chest pain, unspecified Condition: Stable Disposition: HOME, SELF-CARE Instructions: Chest Pain of Unclear Cause ([facility]) Additional Instructions: No clear cause was found for your chest pain today. I also could not clearly palpate any abnormality in your axillary region. He should have further evaluation by primary care in regards to this. Try to quit smoking. [facility] or the [facility] of your choice. Follow-up in 1 to 2 weeks. Return to the emergency department with worsening or new concerning symptoms.
[2019-01-12 03:03] VITALS: BP 138/84
--- NOTE | 2019-01-12 10:11 | EKG REPORT ---
SEVERITY:- NORMAL ECG - SINUS RHYTHM : Confirmed by: Marco Elliott MD 12-Jan-2019 10:10:31
== END 2019-01-12 03:00 | disposition home or self-care (01) ==
LOC: ER 19:43
DX: R07.9 Chest pain, unspecified (principal); I45.10 Unspecified right bundle-branch block; F17.200 Nicotine dependence, unspecified, uncomplicated; Z88.5 Allergy status to narcotic agent
CPT/HCPCS: 36415; 71046; 80053; 84484; 85025; 93005; 93010; 99285

== ENCOUNTER 2019-05-28 16:42 | Emergency (ER) | payer SELFPAY ==
[2019-05-28] MEDS ORDERED: KETOROLAC TROMETHAMINE INJ/PF 30 MG/1 ML SDV IM ONE (17:31)
[2019-05-28] MEDS ORDERED: DEXAMETHASONE SOD PHOS INJ 10 MG/1 ML VIAL IM ONE (17:32)
--- NOTE | 2019-05-28 17:36 | ER Document Report ---
HPI - HPI Time Seen by Provider: 05/28/19 17:24 Context: 54-year-old male presents to the emergency department with chief complaint of left elbow pain x1 month that got acutely worse when he was taken a shower today. Patient states that he was seen in [place], x-ray was done, which not reveal any abnormalities but he does not members diagnosis. Patient states that he is been dealing with this since but today when he took a shower and went to wash his hair he developed acute pain and a "tightness" in his elbow. Denies any fevers or recent illness, denies IV drug use, denies any trauma or injury to the site. Patient still has full function of his arm and full range of motion. - MUSCULOSKELETAL Musculoskeletal: REPORTS: Extremity pain - left elbow Past Medical History - Social History Smoking Status: Unknown if Ever Smoked Family History: Reviewed & Not Pertinent, Malignancy - Multiple cancers throughout the family Renal/ Medical History: Denies: Hx Peritoneal Dialysis Skin Medical History: Reports Hx MRSA Traumatic Medical History: Reports: Hx Fractures Infectious Medical History: Reports: Hx MRSA Past Surgical History: Reports: Hx Orthopedic Surgery - R clavical - Immunizations Immunizations up to date: No Hx Diphtheria, Pertussis, Tetanus Vaccination: Yes Vertical Provider Document - CONSTITUTIONAL Notes: PHYSICAL EXAMINATION: Reviewed vital signs and charting by RN GENERAL: Alert, interacts well. No acute distress. HEAD: Normocephalic, atraumatic. EYES: Pupils equal and round. Extraocular movements intact. ENT: Oral mucosa moist, tongue midline. NECK: Full range of motion. Trachea midline. LUNGS: Clear to auscultation bilaterally, no wheezes, rales, or rhonchi. No r espiratory distress. HEART: Regular rate and rhythm. No murmur ABDOMEN: soft, non-tender. No distention. Bowel sounds present EXTREMITIES: Moves all 4 extremities spontaneously. No edema, No cyanosis. PSYCH: Normal affect, normal mood. SKIN: Warm, dry, normal turgor. No rashes or lesions noted. - INFECTION CONTROL TRAVEL OUTSIDE OF THE [place] IN LAST 30 DAYS: No Course - Re-evaluation Re-evalutation: 05/28/19 17:33 Well-appearing no acute distress. I will obtain an x-ray to assess for effusion or any soft tissue abnormalities. He will receive Toradol 30 mg IM once and Decadron 10 mg IM once. 12/03/19 18:07 X-ray did not show any evidence of bony abnormality, joint effusion, any other concerning findings. I will offer patient a sling and he is stable for discharge. - Vital Signs Vital signs: Temp Pulse Resp BP Pulse Ox 98.4 F 85 16 127/61 H 97 05/28/19 17:06 05/28/19 17:06 05/28/19 17:06 05/28/19 17:06 05/28/19 17:06 Discharge - Discharge Clinical Impression: Left elbow pain Condition: Good Disposition: HOME, SELF-CARE Additional Instructions: You were seen in the emergency department this afternoon for left elbow pain. X-ray did not show any concerning signs like a an effusion or fracture. It is most likely that you have a condition called bursitis which is an inflammation of the fat pads that question your bones in your joints. You received a dose of Toradol here in the emergency department and you can continue to take ibuprofen 600 mg every 6 hours with food and/or milk and Tylenol 1000 mg for pain every 6 hours as needed. Please return to the emergency department if you develop high fevers, you develop worsening swelling, you lose use of your arm, your fingers or hand starts to turn purple or blue, you lose feeling in your arm, or you have any other concerning symptoms.
--- NOTE | 2019-05-28 17:55 | RADIOLOGY REPORT (SQ) ---
EXAM DESCRIPTION: ELBOW LEFT OVER 2 VIEWS COMPLETED DATE/TIME: 05/28/2019 5:40 pm REASON FOR STUDY: Pain concern for effusion COMPARISON: None. NUMBER OF VIEWS: Four views. TECHNIQUE: AP, lateral, and both oblique radiographic images acquired of the left elbow. LIMITATIONS: None. FINDINGS: MINERALIZATION: Normal. BONES: No acute fracture or dislocation. No worrisome bone lesions. JOINT: No effusion. SOFT TISSUES: No soft tissue swelling. No foreign body. OTHER: No other significant finding. IMPRESSION: NEGATIVE STUDY OF THE LEFT ELBOW. NO RADIOGRAPHIC EVIDENCE OF ACUTE INJURY. TECHNICAL DOCUMENTATION: JOB ID: [id number] [employer]- All Rights Reserved Reading location - IP/workstation name: [email or web address]
[2019-05-28 18:38] VITALS: BP 131/75
== END 2019-05-28 18:37 | disposition home or self-care (01) ==
LOC: ER 16:42
DX: M25.522 Pain in left elbow (principal); Z86.14 Personal history of Methicillin resistant Staphylococcus aureus infection
CPT/HCPCS: 99283; 96372; 73080; J1885; J1100